=== PATIENT | female | born 1970 | race Caucasian/White ===

== ENCOUNTER 2017-05-16 02:55 | Emergency (ER) | payer MEDICARE ==
[~2017-05-16] VITALS: Ht 160 cm; Wt 114.8 kg
[2017-05-16 03:00] VITALS: BP 143/76
[2017-05-16] MEDS ORDERED: DIVA500T2 PO ×2 (03:14)
[2017-05-16] MEDS ORDERED: ARIP20TA5 PO (03:15)
[2017-05-16] MEDS ORDERED: MELO15TA6 PO (03:15)
[2017-05-16] MEDS ORDERED: ESTR1TAB15 PO (03:15)
[2017-05-16] MEDS ORDERED: CRAN1TAB6 PO (03:16)
[2017-05-16] MEDS ORDERED: PREN1TAB58 PO (03:16)
[2017-05-16] MEDS ORDERED: TRAM-48 PO (03:27)
--- NOTE | 2017-05-16 03:27 | PHYS DOC ---
Adult General Chief Complaint Chief Complaint: Toothache HPI HPI Patient is a 46-year-old female who presents here today complaining of pain to her right upper gums. Patient reports she has had dental extraction and had dentures made. Patient reports 2 days ago she noticed erosion through her upper gums into bone. Patient reports that she is visiting [place] for the next 2 weeks. Patient denies any other symptomatology. Patient denies any fevers shakes chills nausea vomiting or diarrhea. Patient reports that she is currently still on her antibiotics which is amoxicillin since her extractions. Patient is currently taking Mobic reports he cannot take further anti- inflammatories because she is on mobic. Review of systems: Constitutional: Denies fever or chills Eyes: Denies change in visual acuity, redness, or eye pain HENT: Denies nasal congestion or sore throat Respiratory: Denies cough or shortness of breath All other systems were reviewed and found to be within normal limits, except as documented in this note. Physical exam: Constitutional: Well developed, well nourished, no acute distress, non-toxic appearance. HENT: Normocephalic, atraumatic, bilateral external ears normal, nose normal. Eyes: PERRLA, EOMI, conjunctiva normal, no discharge. Neck: Normal range of motion, no tenderness, supple, no stridor. Cardiovascular: Heart rate regular rhythm, Lungs & Thorax: Bilateral breath sounds clear to auscultation Abdomen: No abdominal distention. Skin: Warm, dry, no erythema, no rash. Back: Normal spinal curvature Extremities: No tenderness, no cyanosis, no clubbing, ROM intact, no edema. Neurologic: Alert and oriented X 3, normal motor function, normal sensory function, no focal deficits noted. Psychologic: Affect normal, judgement normal, mood normal. Patient's ER physical exam was most unremarkable: Patient does have erosion of her gum over her right upper canines. There is no surrounding erythema or drainage or evidence of infection. Assessment and plan: 1. 46-year-old female who presents here today with erosion of her gums. Patient is status post dental extractions last week. Patient is visiting here from for the next 2 weeks. Patient reports that her dentist is burton dunn. I have provided the patient the location for an [facility] and [facility] Patient will be instructed to continue her antibiotics, will be given tramadol, will be instructed to follow-up with a dentist in the morning for further evaluation and management of her symptoms. Allergies Allergies Allergies Coded Allergies Type Severity Reaction Last Updated Verified NSAIDS (Non-Steroidal Anti-Inflamma Allergy Intermediate 05/16/17 Yes Sulfa (Sulfonamide Antibiotics) Allergy Unknown 05/16/17 Yes prochlorperazine Allergy Unknown 05/16/17 Yes promethazine Allergy Unknown 05/16/17 Yes EKG EKG [] Radiology/Procedures Radiology/Procedures [] Course & Med Decision Making Course & Med Decision Making Pertinent Labs and Imaging studies reviewed. (See chart for details) [] Dragon Disclaimer Dragon Disclaimer This electronic medical record was generated, in whole or in part, using a voice recognition dictation system. Departure Departure: Impression: Primary Impression: Dental implant pain Additional Impression: Gum lesion Disposition: 01 HOME, SELF-CARE Condition: IMPROVED Referrals: NON,STAFF (PCP) Patient Instructions: Dental Pain, Gum Disease Additional Instructions: Please follow up with the [facility] this morning for further evaluation and management of your symptoms. This is not a condition that can be managed in the ER, he will need a specialist to further assist you with its care. Scripts Tramadol Hcl (ULTRAM) 50 Mg Tablet 50 MG PO PRN Q6HRS Y for PAIN, #20 TAB Prov: LIO MONTALVO MD 05/16/17 Problem Qualifiers LIO MONTALVO MD May 16, 2017 03:27
[2017-05-16] MEDS ORDERED: START PACK - traMADol 1 STARTPACK TABLET PO ONE ×2 (03:35→03:45)
== END 2017-05-16 03:45 | disposition home or self-care (01) ==
LOC: ER 02:55
DX: K08.89 Other specified disorders of teeth and supporting structures (principal); K13.79 Other lesions of oral mucosa; Z98.818 Other dental procedure status; Z88.2 Allergy status to sulfonamides; Z88.6 Allergy status to analgesic agent; Z88.8 Allergy status to other drugs, medicaments and biological substances
CPT/HCPCS: 99283